=== PATIENT | female | born 1960 | race Caucasian/White ===

== ENCOUNTER → 2023-05-03 | Outpatient (CLI) | payer OTHER ==
[~2023-05-03] MED LIST: KEFLEX500 MG PO; VICODIN 5/500 505 MG PO
[2023-05-03 12:31] LABS: BUN 9 mg/dl (9-23); CHLORIDE 107 mmol/L (98-107); POTASSIUM 3.8 mmol/L (3.4-5.1)
== END | disposition home or self-care (01) ==
LOC: LAB 11:58
PROVIDERS: ATTEND Internal Medicine Nephrology
DX: U07.1 COVID-19 (principal)

== ENCOUNTER → 2024-12-12 | Outpatient (CLI) | payer OTHER | END | disposition home or self-care (01) | LOC: RAD 10:18 | PROVIDERS: ATTEND Internal Medicine Nephrology | DX: M81.8 Other osteoporosis without current pathological fracture (principal); Z78.0 Asymptomatic menopausal state ==

== ENCOUNTER 2025-02-03 06:59 | Emergency (ER) | payer MEDICARE, BC ==
[~2025-02-03] VITALS: Ht 149.8 cm; Wt 46.3 kg
[2025-02-03] MEDS ORDERED: Ciprofloxacin Hydrochloride 500 MG TAB PO ONE (07:20)
[2025-02-03] MEDS ORDERED: OXYBUTYNIN XL 5 MG TAB PO ONE (07:20)
[2025-02-03 07:37] LABS: BILIRUBIN Negative (Negative); BLOOD 3+ (Negative); CLARITY Turbid (Clear); COLOR Red (Yellow); KETONE Negative (Negative); LEUKO ESTERASE 3+ (Negative); NITRITE Negative (Negative); PH 6.5 (4.5-8.0); SPECIFIC GRAVITY 1.010 (1.001-1.030); UROBILINOGEN 0.2 E.U./dl (0.0-1.0)
[2025-02-03 07:51] LABS: RBC TNTC rbc/hpf (0-2); WBC TNTC wbc/hpf (0-5)
[2025-02-03] MEDS ORDERED: CIPRO500 MG PO (07:54)
[2025-02-03] MEDS ORDERED: OXYBUTYNIN5 MG PO (07:54)
== END 2025-02-03 08:02 | disposition home or self-care (01) ==
LOC: ED 06:59
PROVIDERS: Emergency Medicine
DX: N39.0 Urinary tract infection, site not specified (principal); Z79.82 Long term (current) use of aspirin; Z88.8 Allergy status to other drugs, medicaments and biological substances

== ENCOUNTER → 2025-02-17 | Outpatient (CLI) | payer MEDICARE, BC ==
[~2025-02-17] MED LIST changes: +CIPRO500 MG PO; +OXYBUTYNIN5 MG PO
== END | disposition home or self-care (01) ==
LOC: LAB 12:29
PROVIDERS: ATTEND Internal Medicine Nephrology
DX: M25.50 Pain in unspecified joint (principal)

== ENCOUNTER → 2025-06-11 | Outpatient (CLI) | payer MEDICARE, BC, MEDICAID | END | disposition home or self-care (01) | LOC: RAD 12:51 | PROVIDERS: ATTEND Internal Medicine Nephrology | DX: R07.89 Other chest pain (principal); I35.1 Nonrheumatic aortic (valve) insufficiency ==